=== PATIENT | female | born 1945 | race Caucasian/White ===

== ENCOUNTER 2018-10-01 08:53 | Day surgery (SDC) | payer MEDICARE ==
--- NOTE | 2018-10-01 08:12 | HP ---
DATE OF SURGERY: 10/01/2018 HISTORY OF PRESENT ILLNESS: The patient is a 73 year-old who had a positive fecal occult recently. No gross bloody stools. Some loose stools, some normal. No prior colonoscopy. Family history negative for colon cancer. She had a sister had liver cancer. She is in need of colonoscopy. PAST MEDICAL HISTORY: Includes some extremity fractures in the past. Hyperlipidemia, hypertension, renal insufficiency, hyperparathyroidism secondary to renal insufficiency, diabetes mellitus type 2. PAST SURGICAL HISTORY: Colon transplant. Hysterectomy. MEDICATIONS: Amlodipine, calcitriol, carvedilol, chlorthalidone, Glyburide, losartan, magnesium, Novolin, Paricalcitol, Simvastatin, vitamin D3. ALLERGIES: DARVON. SULFA. AMPICILLIN. FAMILY HISTORY: Negative for colon cancer. She had a sister had liver cancer. Diabetes, hypertension. SOCIAL HISTORY: Denies alcohol abuse. REVIEW OF SYSTEMS: Twelve systems reviewed per admission assessment. No chest pain or palpitations other systems negative or noncontributory as above and per preadmission questionnaire. PHYSICAL EXAMINATION: GENERAL: No acute distress. HEENT: Sclerae nonicteric. NECK: No JVD. CHEST: Equal excursion, nonlabored breathing. CVS: Regular rate and rhythm. ABDOMEN: Soft. No peritoneal signs. EXTREMITIES: No significant edema. NEURO: Alert, oriented, moving extremities symmetrically. No gross motor deficits noted. RECTAL: Deferred timed to endoscopy exam. IMPRESSION: History of no prior colonoscopy, positive fecal occult according to the patient. I feel she is a candidate for colonoscopy. Risks and benefits explained in detail including but not limited to bleeding or infection, risk of bowel injury or perforation possibly requiring open procedure, risk of missed or nondiagnosis or incomplete exam possibly requiring barium enema, other studies or procedures, general risk of anesthesia or sedation, risk of bowel prep, postoperative risk of nausea or cramping but not limited to, possible inability to identify the etiology of her fecal occult positive stool possibly requiring other work up, tests or monitoring. She understands all the above but not limited to, will proceed with outpatient follow up colonoscopy.
[~2018-10-01 08:53] MED LIST: Lactated Ringers 1,000 ML IV ONE; Lactated Ringers 1,000 ML IV SCH
[2018-10-01] MEDS ORDERED: Ketamine HCl 50 MG/ML IV ONE (08:54)
[2018-10-01] MEDS ORDERED: DIPRIVAN 200 MG/20 ML IV ONE (08:54)
[2018-10-01] MEDS ORDERED: Lactated Ringers 1,000 ML IV ONE (11:56)
[2018-10-01 13:31] VITALS: BP 148/87; PULSE 72; O2SAT 96
--- NOTE | 2018-10-01 14:33 | OP ---
SURGERY DATE/TIME: 10/01/2018 1114 PREOPERATIVE DIAGNOSIS: Positive hemoccult. No prior colonoscopy. POSTOPERATIVE DIAGNOSES: 1) Large rectosigmoid mass. 2) Multiple polyps. 3) Diverticulosis. 4) Internal and external hemorrhoids. 5) Fair bowel prep. PROCEDURES: 1) Colonoscopy to terminal ileum. 2) Retrograde ileoscopy. 3) Hot snare polypectomy transverse colon polyp x2. 4) Hot biopsy polypectomy small transverse colon polyp. 5) Hot snare approximately 1.5 cm polyp transverse colon site or right around the splenic flexure area removed with hot snare polypectomy, marked with ink spot tattooing. 6) Hot snare piecemeal biopsy of large rectosigmoid mass upper part of the rectum distal sigmoid. 7) Hot snare polypectomy small rectal polyp. SURGEON: Dr. Tony Dailey. ANESTHESIA: MAC. ESTIMATED BLOOD LOSS: Minimal. INDICATIONS: As noted above. Risks and benefits explained in detail but not limited to and consent obtained. DESCRIPTION OF PROCEDURE AND FINDINGS: The patient is taken to the operating room. MAC anesthesia introduced. After official time out and no disagreement with planned procedure, digital rectal exam did not reveal any large distal rectal masses. She did have some internal and external hemorrhoids. Video colonoscope inserted and passed up through the sigmoid, descending, transverse colon. She was overweight and had a very tortuous colon. This took quite some time with multiple position changes trying to flatten the loop to get the scope to advance forward finally reaching the cecum. It was able to be passed up the terminal ileum. Retrograde ileoscopy performed and grossly unremarkable. The scope slowly and carefully withdrawn. Prep overall was fair. A small amount of liquidy stool suction irrigated as clear as possible. There were three polyps in the transverse colon, two of which removed with hot snare polypectomy and smaller one removed with hot biopsy forceps with brief bursts of cautery elevating these away from the bowel wall. Good hemostasis noted. In the distal transverse or possibly the proximal descending around the splenic flexure area, had a 1.5 cm polyp removed with hot snare polypectomy. The location was marked with ink spot tattooing injecting 1 cc in a couple of locations in submucosa with ink spot tattoo. Good hemostasis noted. The scope then pulled back. In the rectosigmoid area there was a large mass that could not be safely removed endoscopically. The snare was used to take a couple large chunks off of this for biopsy. I felt this would ultimately need surgical resection of this large polypoid mass. Ink spot tattooing injected at the distal edge of the base. Again, this seemed to be at the upper part of the rectum distal sigmoid and rectosigmoid area, lower sigmoid and upper third of the rectum. Good hemostasis noted. Again, ink spot tattooing had been accomplished. There was another small polyp about 3 mm in size in the rectum removed with hot snare polypectomy and brief bursts of cautery. Good hemostasis noted. The scope is withdrawn. Patient tolerated the procedure well. Findings discussed with the family out in the waiting area.
== END 2018-10-01 13:30 | disposition home or self-care (01) ==
LOC: SDC 08:53
PROVIDERS: ATTEND Surgery
DX: D12.3 Benign neoplasm of transverse colon (principal); R19.5 Other fecal abnormalities; K63.5 Polyp of colon; K62.1 Rectal polyp; K64.4 Residual hemorrhoidal skin tags; K64.8 Other hemorrhoids; R19.09 Other intra-abdominal and pelvic swelling, mass and lump
CPT/HCPCS: 82962; 88305; 99100; J2704

== ENCOUNTER 2020-01-20 08:53 | Day surgery (SDC) | payer MEDICARE ==
--- NOTE | 2020-01-17 08:05 | HP ---
DATE OF SURGERY: 01/20/2020 HISTORY OF PRESENT ILLNESS: The patient is a 74 year old with history of colon cancer. No change in bowel movements. No bloody stools. She is in need of follow up colonoscopy. PAST MEDICAL HISTORY: Diabetes, hypertension, colon cancer. PAST SURGICAL HISTORY: Hysterectomy. Appendectomy. Colonoscopy. Laparoscopic assisted partial colectomy with reanastomosis in the past. MEDICATIONS: Chlorthalidone, losartan, amlodipine, Allopurinol, Glyburide, Simvastatin, carvedilol, Novolin insulin. ALLERGIES: SULFA. DARVON. FAMILY HISTORY: No colon cancer. SOCIAL HISTORY: No smoking or alcohol abuse. REVIEW OF SYSTEMS: Fourteen systems reviewed. No chest pain or palpitations. Other systems negative or noncontributory as above and per preadmission questionnaire. PHYSICAL EXAMINATION: GENERAL: No acute distress. HEENT: Sclerae nonicteric. NECK: No JVD. CHEST: Equal excursion, nonlabored breathing. CVS: Regular rate and rhythm. ABDOMEN: Soft. No peritoneal signs. EXTREMITIES: No significant edema. NEURO: Alert, oriented, moving extremities symmetrically. No gross focal deficits. PSYCH: Appropriate mood and affect. RECTAL: Deferred timed to endoscopy exam. IMPRESSION: History of colon cancer in need of follow up surveillance colonoscopy. I feel she is a candidate. Risks and benefits explained in detail including but not limited to bleeding or infection, risk of bowel injury or perforation possibly requiring open procedure, risk of missed or nondiagnosis or incomplete exam possibly requiring barium enema, other studies or procedures, general risk of anesthesia or sedation, risk of bowel prep but not limited to. Consent was obtained, will proceed with outpatient follow up colonoscopy.
[2020-01-20] MEDS ORDERED: Lactated Ringers 1,000 ML IV ONE (09:17)
[2020-01-20] MEDS ORDERED: Lactated Ringers 1,000 ML IV SCH (10:00)
[2020-01-20] MEDS ORDERED: DIPRIVAN 200 MG/20 ML IV ONE (11:05)
[2020-01-20] MEDS ORDERED: Ketamine HCl 50 MG/ML ONE (11:05)
--- NOTE | 2020-01-20 13:46 | OP ---
SURGERY DATE/TIME: 01/20/2020 1111 PREOPERATIVE DIAGNOSIS: Prior history of colon cancer status post resection. POSTOPERATIVE DIAGNOSES: 1) Small polyp descending colon. 2) Small rectal polyp. 3) Diverticulosis. 4) Fair bowel prep. 5) ASA Class III. PROCEDURES: 1) Colonoscopy to cecum with random cold biopsies of old tattoo prior polypectomy site in colon. 2) Hot biopsy polypectomy complete removal of early descending colon polyp. 3) Hot biopsy polypectomy complete removal of rectal polyp just distal to anastomotic site. SURGEON: Dr. Tony Dailey. MACHINE CAGE MAKER: Alejandra Winchester, Medical Student III. ANESTHESIA: MAC. ESTIMATED BLOOD LOSS: Minimal. INDICATIONS: As noted above. Risks and benefits explained in detail but not limited to and consent obtained. DESCRIPTION OF PROCEDURE AND FINDINGS: The patient is taken to the operating room. MAC anesthesia introduced. After official time out and no disagreement with planned procedure, the video colonoscope inserted and passed up the tortuous sigmoid, descending, transverse and ascending colon around to the cecum. Appendiceal orifice and valve well visualized. Valve was photo-documented. Confirmed location palpation right lower quadrant. Prep overall was fair with some semisolid liquidy stool was suction irrigated as clear as possible just slightly limiting the exam. The scope is slowly and carefully withdrawn over the next eight minutes. There were no signs of any large polyps or obstructing masses. There is an old tattoo site in the mid portion of the colon. Cold biopsy taken overlying this to evaluate for any unusual recurrence. Good hemostasis noted. Random cold biopsies taken over this mucosal tattoo area. Random cold biopsies polypectomy taken over the tattooed area. The scope is then carefully pulled back to the descending colon. Another small polyp removed with hot biopsy polypectomy with brief bursts of cautery. Good hemostasis noted. The scope pulled through anastomotic site. It was widely patent. No evidence of any recurrence. There is a little suture/staple reaction but otherwise no evidence of any recurrence. The scope pulled back in the proximal rectum just past the anastomotic area. Small polyps removed with hot biopsy forceps with brief bursts of cautery. Good hemostasis noted. Otherwise she had some small internal and external hemorrhoids. There were no signs of any large polyps, masses or obstructing lesions. She had some diverticulosis. Withdrawal time was about eight minutes. She tolerated the procedure. There was no gross evidence of any cancer recurrence.
[2020-01-20 15:21] VITALS: O2SAT 97
[2020-01-20 15:22] VITALS: BP 145/87; PULSE 68
== END 2020-01-20 12:30 | disposition home or self-care (01) ==
LOC: SDC 08:53
PROVIDERS: ATTEND Surgery
DX: Z08 Encounter for follow-up examination after completed treatment for malignant neoplasm (principal); Z85.038 Personal history of other malignant neoplasm of large intestine; K63.5 Polyp of colon; D12.8 Benign neoplasm of rectum; K57.30 Diverticulosis of large intestine without perforation or abscess without bleeding; E11.9 Type 2 diabetes mellitus without complications; I10 Essential (primary) hypertension; Z79.899 Other long term (current) drug therapy
CPT/HCPCS: 82962; 88305; 99100; J2704

== ENCOUNTER 2021-10-01 11:05 | Observation (INO) | payer MEDICARE ==
[2021-10-01] MEDS ORDERED: Sodium Chloride 0.9% 1000 ML 1,000 ML IV STA (11:11)
[2021-10-01] MEDS ORDERED: BENADRYL 50 MG/ML IV ONE (11:12)
[2021-10-01] MEDS ORDERED: TORAdol 30 mg Injection IV ONE (11:12)
[2021-10-01] MEDS ORDERED: Reglan 10 MG/2 ML IV ONE (11:12)
[2021-10-01] MEDS ORDERED: DECADRON 10MG INJ. IV ONE (11:13)
[2021-10-01 11:42] LABS: INR 1.19 (0.8-3.0)
[2021-10-01 11:45] LABS: PTT 51.9 SECONDS (25.1-36.5)
[2021-10-01 11:57] LABS: ALBUMIN 3.8 g/dL (3.5-5.0); ANION GAP 15.2 MEQ/L (5-15); BILIRUBIN,TOTAL 0.6 mg/dL (0.2-1.3); Calcium 8.9 mg/dL (8.4-10.2); Creatinine 1 2.08 mg/dL (0.52-1.04); EST GLOMERULAR FILTRATION RATE 24.5 ML/MIN; Potassium 4.3 mmol/L (3.5-5.1); Total Protein 6.3 g/dL (6.3-8.2)
--- NOTE | 2021-10-01 12:18 | XRAY ---
Indication: Volume overload. Comparison: None PA/lateral chest hyperinflated with mild bibasilar subsegmental atelectasis/scarring. Remaining heart and upper lungs unremarkable. Bony thorax intact with mild osteopenia and degenerative changes. Impression: COPD and bibasilar subsegmental atelectasis/scarring. Negative for acute pneumonic process or CHF.
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
[2021-10-01 12:49] LABS: Bacteria FEW /HPF (NEGATIVE); Epithelial Cells RARE /HPF (FEW); WBC >100 /HPF (0-5)
[2021-10-01 12:55] LABS: Absolute Neutrophil Ct (ANC) 4.86 (1.4-6.9); Basophil (Absolute #) 0.01 (0-0.4); Eosinophil % 2.6 % (0.00-5.0); Eosinophil (Absolute #) 0.15 (0-0.5); Hematocrit 35.2 % (35-47); Hemoglobin 11.1 gm/dl (12.0-16.0); Lymphocyte (Absolute #) 0.49 (1.0-4.6); Lymphocytes % 8.4 % (24.0-44.0); Mean Cell Volume 93.6 fl (78-100); Mean Corpuscular Hemoglobin 29.5 pg (26-32); Mean Corpuscular Hgb Concent. 31.5 g/dl (32-36); Monocyte (Absolute #) 0.35 (0.0-1.3); Neutrophil % 82.8 % (36.0-66.0); Platelet Count 207 K/mm3 (150-450); Red Blood Count 3.76 M/mm3 (4.1-5.4); White Blood Count 5.9 K/mm3 (4.0-10.5)
[2021-10-01 12:57] LABS: Appearance SLIGHTLY CLOUDY (CLEAR); Bilirubin NEGATIVE (NEGATIVE); Glucose NEGATIVE (NEGATIVE); Ketones NEGATIVE (NEGATIVE); Nitrite NEGATIVE (NEGATIVE); Protein,Urine Dip 100 (Negative); RBC NEGATIVE Ery/ul (0-5); Urobilinogen 0.2 mg/dL (0-1)
[2021-10-01 13:01] LABS: Neutrophils 84 % (36.0-66.0)
[2021-10-01 13:02] LABS: Eosinophil 3 % (0.00-3.0); Lymphocytes 8 % (24-44); Monocyte 5 % (0.0-12.0); Platelet Estimate NORMAL (NORMAL)
[2021-10-01 13:45] LABS: Dipstick done @ ? MAIN LAB
[2021-10-01 17:50] LABS: INFLUENZA A NEGATIVE (NEGATIVE); INFLUENZA B NEGATIVE (NEGATIVE); RESPIRATORY SYNCTIAL VIRUS NEGATIVE (Negative); SARS-CoV-2 Xpert Express NEGATIVE (NEGATIVE)
[2021-10-01] MEDS ORDERED: HUMALOG SQ PRN (21:17)
[2021-10-01] MEDS: Novolin N SQ SCH ×2 (21:50→22:02)
[2021-10-01] MEDS: ZOCOR 20MG PO SCH (21:52)
[2021-10-01] MEDS: Apresoline 25 MG TABLET PO SCH (21:53)
[2021-10-01] MEDS: NORVASC 5 MG PO SCH (21:53)
[2021-10-01] MEDS: COREG 12.5 MG PO SCH (21:54)
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
[2021-10-02 06:18] LABS: Absolute Neutrophil Ct (ANC) 4.18 (1.4-6.9); Basophil (Absolute #) 0.01 (0-0.4); Eosinophil % 3.4 % (0.00-5.0); Hematocrit 30.2 % (35-47); Hemoglobin 9.2 gm/dl (12.0-16.0); Lymphocyte (Absolute #) 0.76 (1.0-4.6); Lymphocytes % 13.1 % (24.0-44.0); Mean Corpuscular Hemoglobin 28.9 pg (26-32); Mean Corpuscular Hgb Concent. 30.5 g/dl (32-36); Mean Platelet Volume 10.7 fl (7.5-11.0); Monocyte (Absolute #) 0.66 (0.0-1.3); Monocytes % 11.4 % (0.0-12.0); Neutrophil % 71.9 % (36.0-66.0); Platelet Count 183 K/mm3 (150-450); Red Blood Count 3.18 M/mm3 (4.1-5.4); Red Cell Distribution Width 14.9 % (11.5-14.0); White Blood Count 5.8 K/mm3 (4.0-10.5)
[2021-10-02 06:32] LABS: ALBUMIN 3.1 g/dL (3.5-5.0); ANION GAP 12.8 MEQ/L (5-15); BILIRUBIN,TOTAL 0.4 mg/dL (0.2-1.3); Calcium 8.3 mg/dL (8.4-10.2); EST GLOMERULAR FILTRATION RATE 25.7 ML/MIN; Potassium 3.9 mmol/L (3.5-5.1); Total Protein 5.5 g/dL (6.3-8.2)
[2021-10-02] MEDS: Novolin N SQ SCH ×2 (09:05→21:33)
[2021-10-02] MEDS: COREG 12.5 MG PO SCH ×2 (09:05→21:35)
[2021-10-02] MEDS: Apresoline 25 MG TABLET PO SCH ×4 (09:05→21:35)
--- NOTE | 2021-10-02 09:54 | PCM.NOTE ---
Date and Time: 10/02/21953 Subjective Assessment: doing better - Review of Systems Constitutional: No Fever, No Chills Eyes: No Symptoms Ears, Nose, & Throat: No Symptoms Respiratory: No Cough, No Short Of Breath Cardiac: No Chest Pain, No Edema, No Syncope Abdominal/Gastrointestinal: No Abdominal Pain, No Nausea, No Vomiting, No Diarrhea Genitourinary Symptoms: No Dysuria Musculoskeletal: No Back Pain, No Neck Pain Skin: No Rash Neurological: No Dizziness, No Focal Weakness, No Sensory Changes Psychological: No Symptoms Endocrine: No Symptoms Hematologic/Lymphatic: No Symptoms Immunological/Allergic: No Symptoms Objective Exam General Appearance: no apparent distress, alert Neurologic Exam: alert, oriented x 3, cooperative, normal mood/affect, nml cerebellar function, sensation nml, No motor deficits Skin Exam: normal color, warm, dry Eye Exam: PERRL, EOMI, eyes nml inspection Ears, Nose, Throat Exam: normal ENT inspection, pharynx normal, moist mucous membranes Neck Exam: normal inspection, non-tender, supple, full range of motion Respiratory Exam: normal breath sounds, lungs clear, No respiratory distress Cardiovascular Exam: regular rate/rhythm, normal heart sounds Gastrointestinal/Abdomen Exam: soft, No tenderness, No mass Extremity Exam: normal inspection, normal range of motion Back Exam: normal inspection, normal range of motion, No CVA tenderness, No vertebral tenderness Pelvic Exam: deferred Rectal Exam: deferred OBJECTIVE DATA Vital Signs: Vital Signs - 24 hr Temp Pulse Resp BP Pulse Ox 10/02/21 08:00 18 10/02/21 07:28 97.8 F 78 18 176/74 94 L 10/02/21 04:00 97.7 F 72 16 167/70 96 10/02/21 00:00 97.5 F 76 16 139/80 96 10/01/21 20:59 189/89 10/01/21 20:00 97.8 F 75 16 146/84 95 10/01/21 18:43 97.8 F 75 16 146/84 95 10/01/21 17:11 65 179/115 96 10/01/21 16:06 57 L 17 161/95 95 10/01/21 15:35 61 16 172/64 97 10/01/21 15:07 98 10/01/21 14:55 69 173/78 97 10/01/21 13:09 67 16 157/76 97 10/01/21 12:12 97.8 F 62 20 174/93 98 10/01/21 11:11 97.6 F 68 22 169/89 98 Pain Assessment - Last Documented Pain Intensity 0 Intake and Output: Intake & Output 09/29/21 09/30/21 10/01/21 10/02/21 11:59 11:59 11:59 11:59 Intake Total 780 Output Total 750 Balance 30 Weight 81 kg 81.1 kg Lab Results: Lab Results-Last 24 Hours 10/01/21 10/01/21 10/01/21 Range/Units 11:31 11:31 11:31 WBC (4.0-10.5) K/mm3 RBC (4.1-5.4) M/mm3 Hgb (12.0-16.0) gm/dl Hct (35-47) % MCV (78-100) fl MCH (26-32) pg MCHC (32-36) g/dl RDW (11.5-14.0) % Plt Count (150-450) K/mm3 MPV (7.5-11.0) fl Gran % (36.0-66.0) % Eos # (Auto) (0-0.5) Absolute Lymphs (auto) (1.0-4.6) Absolute Monos (auto) (0.0-1.3) Lymphocytes % (24.0-44.0) % Monocytes % (0.0-12.0) % Eosinophils % (0.00-5.0) % Basophils % (0.0-0.4) % Absolute Granulocytes (1.4-6.9) Segmented Neutrophils (36.0-66.0) % Lymphocytes (Manual) (24-44) % Monocytes (Manual) (0.0-12.0) % Eosinophils (Manual) (0.00-3.0) % Basophils # (0-0.4) Platelet Estimate (NORMAL) RBC Morphology PT 14.0 H (9.4-12.5) SECONDS INR 1.19 (0.8-3.0) APTT 51.9 H (25.1-36.5) SECONDS Sodium 140 (137-145) mmol/L Potassium 4.3 (3.5-5.1) mmol/L Chloride 107 (98-107) mmol/L Carbon Dioxide 23 (22-30) mmol/L Anion Gap 15.2 H (5-15) MEQ/L BUN 27 H (7-17) mg/dL Creatinine 2.08 H (0.52-1.04) mg/dL Estimated GFR 24.5 ML/MIN Glucose 81 (74-106) mg/dL POC Glucometer (74 to 106) mg/dL Calcium 8.9 (8.4-10.2) mg/dL Total Bilirubin 0.60 (0.2-1.3) mg/dL AST 26 (14-36) U/L ALT 29 (0-35) U/L Alkaline Phosphatase 90 (38-126) U/L Troponin I < 0.012 (0.000-0.034) ng/mL NT-Pro-B Natriuret Pep 12697 H (0-1800) pg/mL Serum Total Protein 6.3 (6.3-8.2) g/dL Albumin 3.8 (3.5-5.0) g/dL Urinalys Dipstick Clnc Urine Color (YELLOW) Urine Appearance (CLEAR) Urine pH (5-6) Ur Specific [place] (1.005-1.025) POC Urine Protein Conf (Negative) Urine Ketones (NEGATIVE) Urine Nitrite (NEGATIVE) Urine Bilirubin (NEGATIVE) Urine Urobilinogen (0-1) mg/dL Urine Leukocytes (NEGATIVE) Urine WBC (Auto) (0-5) /HPF Urine RBC (Auto) (0-2) /HPF U Epithel Cells (Auto) (FEW) /HPF Urine Bacteria (Auto) (NEGATIVE) /HPF Urine RBC (0-5) Eran/ul Urine Glucose (NEGATIVE) mg/dL Influenza Type A Ag (NEGATIVE) Influenza Type B Ag (NEGATIVE) RSV (PCR) (Negative) SARS-CoV-2 (PCR) (NEGATIVE) 10/01/21 10/01/21 10/01/21 Range/Units 12:36 12:48 15:40 WBC 5.9 (4.0-10.5) K/mm3 RBC 3.76 L (4.1-5.4) M/mm3 Hgb 11.1 L (12.0-16.0) gm/dl Hct 35.2 (35-47) % MCV 93.6 (78-100) fl MCH 29.5 (26-32) pg MCHC 31.5 L (32-36) g/dl RDW 15.0 H (11.5-14.0) % Plt Count 207 (150-450) K/mm3 MPV 11.0 (7.5-11.0) fl Gran % 82.8 H (36.0-66.0) % Eos # (Auto) 0.15 (0-0.5) Absolute Lymphs (auto) 0.49 L (1.0-4.6) Absolute Monos (auto) 0.35 (0.0-1.3) Lymphocytes % 8.4 L (24.0-44.0) % Monocytes % 6.0 (0.0-12.0) % Eosinophils % 2.6 (0.00-5.0) % Basophils % 0.2 (0.0-0.4) % Absolute Granulocytes 4.86 (1.4-6.9) Segmented Neutrophils 84 H (36.0-66.0) % Lymphocytes (Manual) 8 L (24-44) % Monocytes (Manual) 5 (0.0-12.0) % Eosinophils (Manual) 3 (0.00-3.0) % Basophils # 0.01 (0-0.4) Platelet Estimate NORMAL (NORMAL) RBC Morphology NORMAL PT (9.4-12.5) SECONDS INR (0.8-3.0) APTT (25.1-36.5) SECONDS Sodium (137-145) mmol/L Potassium (3.5-5.1) mmol/L Chloride (98-107) mmol/L Carbon Dioxide (22-30) mmol/L Anion Gap (5-15) MEQ/L BUN (7-17) mg/dL Creatinine (0.52-1.04) mg/dL Estimated GFR ML/MIN Glucose (74-106) mg/dL POC Glucometer (74 to 106) mg/dL Calcium (8.4-10.2) mg/dL Total Bilirubin (0.2-1.3) mg/dL AST (14-36) U/L ALT (0-35) U/L Alkaline Phosphatase (38-126) U/L Troponin I (0.000-0.034) ng/mL NT-Pro-B Natriuret Pep (0-1800) pg/mL Serum Total Protein (6.3-8.2) g/dL Albumin (3.5-5.0) g/dL Urinalys Dipstick Clnc MAIN LAB Urine Color YELLOW (YELLOW) Urine Appearance SLIGHTLY CLOUDY (CLEAR) Urine pH 7.0 (5-6) Ur Specific [place] 1.020 (1.005-1.025) POC Urine Protein Conf 100 (Negative) Urine Ketones NEGATIVE (NEGATIVE) Urine Nitrite NEGATIVE (NEGATIVE) Urine Bilirubin NEGATIVE (NEGATIVE) Urine Urobilinogen 0.2 (0-1) mg/dL Urine Leukocytes MODERATE (NEGATIVE) Urine WBC (Auto) >100 (0-5) /HPF Urine RBC (Auto) 6-10 (0-2) /HPF U Epithel Cells (Auto) RARE (FEW) /HPF Urine Bacteria (Auto) FEW (NEGATIVE) /HPF Urine RBC NEGATIVE (0-5) Eran/ul Urine Glucose NEGATIVE (NEGATIVE) mg/dL Influenza Type A Ag NEGATIVE (NEGATIVE) Influenza Type B Ag NEGATIVE (NEGATIVE) RSV (PCR) NEGATIVE (Negative) SARS-CoV-2 (PCR) NEGATIVE (NEGATIVE) 10/01/21 10/02/21 10/02/21 Range/Units 21:04 05:30 05:30 WBC 5.8 (4.0-10.5) K/mm3 RBC 3.18 L (4.1-5.4) M/mm3 Hgb 9.2 L (12.0-16.0) gm/dl Hct 30.2 L (35-47) % MCV 95.0 (78-100) fl MCH 28.9 (26-32) pg MCHC 30.5 L (32-36) g/dl RDW 14.9 H (11.5-14.0) % Plt Count 183 (150-450) K/mm3 MPV 10.7 (7.5-11.0) fl Gran % 71.9 H (36.0-66.0) % Eos # (Auto) 0.20 (0-0.5) Absolute Lymphs (auto) 0.76 L (1.0-4.6) Absolute Monos (auto) 0.66 (0.0-1.3) Lymphocytes % 13.1 L (24.0-44.0) % Monocytes % 11.4 (0.0-12.0) % Eosinophils % 3.4 (0.00-5.0) % Basophils % 0.2 (0.0-0.4) % Absolute Granulocytes 4.18 (1.4-6.9) Segmented Neutrophils (36.0-66.0) % Lymphocytes (Manual) (24-44) % Monocytes (Manual) (0.0-12.0) % Eosinophils (Manual) (0.00-3.0) % Basophils # 0.01 (0-0.4) Platelet Estimate (NORMAL) RBC Morphology PT (9.4-12.5) SECONDS INR (0.8-3.0) APTT (25.1-36.5) SECONDS Sodium 139 (137-145) mmol/L Potassium 3.9 (3.5-5.1) mmol/L Chloride 108 H (98-107) mmol/L Carbon Dioxide 22 (22-30) mmol/L Anion Gap 12.8 (5-15) MEQ/L BUN 29 H (7-17) mg/dL Creatinine 2.00 H (0.52-1.04) mg/dL Estimated GFR 25.7 ML/MIN Glucose 95 (74-106) mg/dL POC Glucometer 172 H (74 to 106) mg/dL Calcium 8.3 L (8.4-10.2) mg/dL Total Bilirubin 0.40 (0.2-1.3) mg/dL AST 19 (14-36) U/L ALT 22 (0-35) U/L Alkaline Phosphatase 71 (38-126) U/L Troponin I (0.000-0.034) ng/mL NT-Pro-B Natriuret Pep (0-1800) pg/mL Serum Total Protein 5.5 L (6.3-8.2) g/dL Albumin 3.1 L (3.5-5.0) g/dL Urinalys Dipstick Clnc Urine Color (YELLOW) Urine Appearance (CLEAR) Urine pH (5-6) Ur Specific [place] (1.005-1.025) POC Urine Protein Conf (Negative) Urine Ketones (NEGATIVE) Urine Nitrite (NEGATIVE) Urine Bilirubin (NEGATIVE) Urine Urobilinogen (0-1) mg/dL Urine Leukocytes (NEGATIVE) Urine WBC (Auto) (0-5) /HPF Urine RBC (Auto) (0-2) /HPF U Epithel Cells (Auto) (FEW) /HPF Urine Bacteria (Auto) (NEGATIVE) /HPF Urine RBC (0-5) Eran/ul Urine Glucose (NEGATIVE) mg/dL Influenza Type A Ag (NEGATIVE) Influenza Type B Ag (NEGATIVE) RSV (PCR) (Negative) SARS-CoV-2 (PCR) (NEGATIVE) 10/02/21 Range/Units 07:08 WBC (4.0-10.5) K/mm3 RBC (4.1-5.4) M/mm3 Hgb (12.0-16.0) gm/dl Hct (35-47) % MCV (78-100) fl MCH (26-32) pg MCHC (32-36) g/dl RDW (11.5-14.0) % Plt Count (150-450) K/mm3 MPV (7.5-11.0) fl Gran % (36.0-66.0) % Eos # (Auto) (0-0.5) Absolute Lymphs (auto) (1.0-4.6) Absolute Monos (auto) (0.0-1.3) Lymphocytes % (24.0-44.0) % Monocytes % (0.0-12.0) % Eosinophils % (0.00-5.0) % Basophils % (0.0-0.4) % Absolute Granulocytes (1.4-6.9) Segmented Neutrophils (36.0-66.0) % Lymphocytes (Manual) (24-44) % Monocytes (Manual) (0.0-12.0) % Eosinophils (Manual) (0.00-3.0) % Basophils # (0-0.4) Platelet Estimate (NORMAL) RBC Morphology PT (9.4-12.5) SECONDS INR (0.8-3.0) APTT (25.1-36.5) SECONDS Sodium (137-145) mmol/L Potassium (3.5-5.1) mmol/L Chloride (98-107) mmol/L Carbon Dioxide (22-30) mmol/L Anion Gap (5-15) MEQ/L BUN (7-17) mg/dL Creatinine (0.52-1.04) mg/dL Estimated GFR ML/MIN Glucose (74-106) mg/dL POC Glucometer 82 (74 to 106) mg/dL Calcium (8.4-10.2) mg/dL Total Bilirubin (0.2-1.3) mg/dL AST (14-36) U/L ALT (0-35) U/L Alkaline Phosphatase (38-126) U/L Troponin I (0.000-0.034) ng/mL NT-Pro-B Natriuret Pep (0-1800) pg/mL Serum Total Protein (6.3-8.2) g/dL Albumin (3.5-5.0) g/dL Urinalys Dipstick Clnc Urine Color (YELLOW) Urine Appearance (CLEAR) Urine pH (5-6) Ur Specific Burton (1.005-1.025) POC Urine Protein Conf (Negative) Urine Ketones (NEGATIVE) Urine Nitrite (NEGATIVE) Urine Bilirubin (NEGATIVE) Urine Urobilinogen (0-1) mg/dL Urine Leukocytes (NEGATIVE) Urine WBC (Auto) (0-5) /HPF Urine RBC (Auto) (0-2) /HPF U Epithel Cells (Auto) (FEW) /HPF Urine Bacteria (Auto) (NEGATIVE) /HPF Urine RBC (0-5) Eran/ul Urine Glucose (NEGATIVE) mg/dL Influenza Type A Ag (NEGATIVE) Influenza Type B Ag (NEGATIVE) RSV (PCR) (Negative) SARS-CoV-2 (PCR) (NEGATIVE) Radiology Exams: Radiology Procedures Category Date Time Status CHEST 2 VIEWS (PA AND LAT) Stat Exams 10/01/21 13:34 Completed ECHO W/2D AND DOPPLER [US] Stat Exams 10/01/21 15:01 Taken Assessment/Plan (1) Decreased urine output Current Visit: Yes Status: Acute Code(s): R34 - ANURIA AND OLIGURIA (2) Elevated brain natriuretic peptide (BNP) level Current Visit: Yes Status: Acute Code(s): R79.89 - OTHER SPECIFIED ABNORMAL FINDINGS OF BLOOD CHEMISTRY (3) UTI (urinary tract infection) Current Visit: Yes Status: Acute Qualifiers: Urinary tract infection type: acute cystitis Hematuria presence: without hematuria Qualified Code(s): N30.00 - Acute cystitis without hematuria Code(s): N39.0 - URINARY TRACT INFECTION, SITE NOT SPECIFIED
[2021-10-02] MEDS ORDERED: NON-FORMULARY ITEM (Hydralazine Hcl [Hydralazine Hcl] 50 MG Tablet) PO SCH (10:00)
[2021-10-02] MEDS ORDERED: NON-FORMULARY ITEM (Glipizide [Glipizide Er] 5 MG Tab.Er.24) PO SCH (10:00)
[2021-10-02] MEDS ORDERED: NON-FORMULARY ITEM (Losartan Potassium [Cozaar] 100 MG Tablet) PO SCH (10:00)
[2021-10-02] MEDS: Cozaar 50 MG PO SCH (10:03)
[2021-10-02] MEDS: CHLORTHALIDONE PO SCH (10:04)
[2021-10-02] MEDS: Amaryl 2 MG PO SCH (10:04)
[2021-10-02] MEDS: BETAMETHASONE DIPROPIONATE TOP SCH ×2 (10:05→21:32)
[2021-10-02] MEDS ORDERED: MEDICATION INTERVENTION MC SCH (11:00)
[2021-10-02] MEDS: Glucotrol Xl 2.5 MG PO SCH (17:52)
[2021-10-02] MEDS: ZOCOR 20MG PO SCH (21:35)
[2021-10-02] MEDS: NORVASC 5 MG PO SCH (21:35)
[2021-10-02] MEDS ORDERED: FLUOROMETHOLONE OP SCH (22:00)
[2021-10-02] MEDS ORDERED: ZOCOR 20MG PO SCH (22:00)
--- NOTE | 2021-10-03 08:35 | PCM.NOTE ---
Date and Time: 10/03/21832 Subjective Assessment: doing ok - Review of Systems Constitutional: No Fever, No Chills Eyes: No Symptoms Ears, Nose, & Throat: No Symptoms Respiratory: No Cough, No Short Of Breath Cardiac: No Chest Pain, No Edema, No Syncope Abdominal/Gastrointestinal: No Abdominal Pain, No Nausea, No Vomiting, No Diarrhea Genitourinary Symptoms: No Dysuria Musculoskeletal: No Back Pain, No Neck Pain Skin: No Rash Neurological: No Dizziness, No Focal Weakness, No Sensory Changes Psychological: No Symptoms Endocrine: No Symptoms Hematologic/Lymphatic: No Symptoms Immunological/Allergic: No Symptoms Objective Exam General Appearance: no apparent distress, alert Neurologic Exam: alert, oriented x 3, cooperative, normal mood/affect, nml cerebellar function, sensation nml, No motor deficits Skin Exam: normal color, warm, dry Eye Exam: PERRL, EOMI, eyes nml inspection Ears, Nose, Throat Exam: normal ENT inspection, pharynx normal, moist mucous membranes Neck Exam: normal inspection, non-tender, supple, full range of motion Respiratory Exam: normal breath sounds, lungs clear, No respiratory distress Cardiovascular Exam: regular rate/rhythm, normal heart sounds Gastrointestinal/Abdomen Exam: soft, No tenderness, No mass Extremity Exam: normal inspection, normal range of motion Back Exam: normal inspection, normal range of motion, No CVA tenderness, No vertebral tenderness Pelvic Exam: deferred Rectal Exam: deferred OBJECTIVE DATA Vital Signs: Vital Signs - 24 hr Temp Pulse Resp BP Pulse Ox 10/03/21 08:00 96.5 F 69 20 144/67 95 10/03/21 04:00 97.7 F 64 20 148/66 92 L 10/03/21 00:00 97.5 F 58 L 20 141/66 94 L 10/02/21 20:00 97.8 F 60 20 159/71 95 10/02/21 16:00 97.8 F 60 20 159/71 95 10/02/21 12:00 18 10/02/21 11:42 98.4 F 61 18 153/66 96 Pain Assessment - Last Documented Pain Intensity 0 Intake and Output: Intake & Output 09/30/21 10/01/21 10/02/21 10/03/21 11:59 11:59 11:59 11:59 Intake Total 780 1560 Output Total 750 1400 Balance 30 160 Weight 81 kg 81.1 kg 81.1 kg Lab Results: Lab Results-Last 24 Hours 10/02/21 10/02/21 10/02/21 Range/Units 10:54 15:55 20:46 POC Glucometer 147 H 122 H 161 H (74 to 106) mg/dL 10/03/21 10/03/21 Range/Units 07:07 07:50 POC Glucometer 46 L* 110 H (74 to 106) mg/dL Radiology Exams: Radiology Procedures Category Date Time Status CHEST 2 VIEWS (PA AND LAT) Stat Exams 10/01/21 13:34 Completed ECHO W/2D AND DOPPLER [US] Stat Exams 10/01/21 15:01 Taken Assessment/Plan (1) Decreased urine output Current Visit: Yes Status: Resolved Code(s): R34 - ANURIA AND OLIGURIA (2) Elevated brain natriuretic peptide (BNP) level Current Visit: Yes Status: Acute Code(s): R79.89 - OTHER SPECIFIED ABNORMAL FINDINGS OF BLOOD CHEMISTRY (3) UTI (urinary tract infection) Current Visit: Yes Status: Acute Qualifiers: Urinary tract infection type: acute cystitis Hematuria presence: without hematuria Qualified Code(s): N30.00 - Acute cystitis without hematuria Code(s): N39.0 - URINARY TRACT INFECTION, SITE NOT SPECIFIED
[2021-10-03 08:52] LABS: ALBUMIN 3.3 g/dL (3.5-5.0); ANION GAP 12.8 MEQ/L (5-15); BILIRUBIN,TOTAL 0.4 mg/dL (0.2-1.3); Calcium 8.6 mg/dL (8.4-10.2); Creatinine 1 2.18 mg/dL (0.52-1.04); EST GLOMERULAR FILTRATION RATE 23.2 ML/MIN; Potassium 4.3 mmol/L (3.5-5.1); Total Protein 5.7 g/dL (6.3-8.2)
[2021-10-03] MEDS: Apresoline 25 MG TABLET PO SCH ×3 (09:15→22:08)
[2021-10-03] MEDS: Amaryl 2 MG PO SCH (09:15)
[2021-10-03] MEDS: Glucotrol Xl 2.5 MG PO SCH ×2 (09:15→17:05)
[2021-10-03] MEDS: Cozaar 50 MG PO SCH (09:16)
[2021-10-03] MEDS: COREG 12.5 MG PO SCH ×2 (09:16→22:08)
[2021-10-03] MEDS: CHLORTHALIDONE PO SCH (09:17)
[2021-10-03] MEDS: BETAMETHASONE DIPROPIONATE TOP SCH ×2 (09:17→22:06)
[2021-10-03 09:19] LABS: Absolute Neutrophil Ct (ANC) 4.26 (1.4-6.9); Basophil (Absolute #) 0.01 (0-0.4); Eosinophil % 3.5 % (0.00-5.0); Hematocrit 33.4 % (35-47); Hemoglobin 10.1 gm/dl (12.0-16.0); Lymphocyte (Absolute #) 0.69 (1.0-4.6); Mean Cell Volume 94.9 fl (78-100); Mean Corpuscular Hemoglobin 28.7 pg (26-32); Mean Corpuscular Hgb Concent. 30.2 g/dl (32-36); Mean Platelet Volume 10.9 fl (7.5-11.0); Monocyte (Absolute #) 0.58 (0.0-1.3); Monocytes % 10.1 % (0.0-12.0); Neutrophil % 74.2 % (36.0-66.0); Platelet Count 186 K/mm3 (150-450); Red Blood Count 3.52 M/mm3 (4.1-5.4); Red Cell Distribution Width 14.7 % (11.5-14.0); White Blood Count 5.7 K/mm3 (4.0-10.5)
[2021-10-03] MEDS: Novolin N SQ SCH ×2 (09:24→22:10)
[2021-10-03] MEDS: Zosyn 2.25 GM 2.25 GM in Sodium Chloride 100ML MINI-BAG PLUS 100 ML IV SCH ×3 (12:35→23:50)
[2021-10-03] MEDS: NORVASC 5 MG PO SCH (22:08)
[2021-10-03] MEDS: ZOCOR 20MG PO SCH (22:09)
[2021-10-04] MEDS: Zosyn 2.25 GM 2.25 GM in Sodium Chloride 100ML MINI-BAG PLUS 100 ML IV SCH (05:08)
[2021-10-04] MEDS: Amaryl 2 MG PO SCH (08:08)
[2021-10-04] MEDS: CHLORTHALIDONE PO SCH (08:09)
[2021-10-04] MEDS: Cozaar 50 MG PO SCH (08:09)
[2021-10-04] MEDS: COREG 12.5 MG PO SCH (08:09)
[2021-10-04] MEDS: Glucotrol Xl 2.5 MG PO SCH (08:09)
[2021-10-04] MEDS: Apresoline 25 MG TABLET PO SCH (08:09)
[2021-10-04] MEDS: BETAMETHASONE DIPROPIONATE TOP SCH (08:10)
[2021-10-04] MEDS: Novolin N SQ SCH (08:12)
[2021-10-04 08:13] VITALS: BP 155/67; PULSE 63; O2SAT 95
--- NOTE | 2021-10-04 11:15 | DS ---
DISCHARGE DIAGNOSES: 1) URINARY TRACT INFECTION. 2) HYPERTENSION. 3) CHRONIC RENAL FAILURE. 4) DECREASED URINARY OUTPUT. 5) ELEVATED PRO-BNP LEVEL. HOSPITAL COURSE: The patient is a 76-year-old white female who came to the emergency room after having called the office and instructed to do so due to decreased urinary output. The patient was unable to produce any urine in the emergency room but after catheterization they were able to obtain a urine sample. The patient was noted to have an elevated Pro-BNP level and creatinine was actually stable for her. She does have a elastic tape inserter that she follows routinely. The patient had been changing around her blood pressure medications which may have caused the issue as she has been fairly hypertensive recently. The patient was admitted to the hospital and monitored. She was given Zosyn for apparent urinary tract infection with 51 to 100 white blood cells per high power field which did return agent to be Escherichia coli 10 to 20,000 colonies. The patient reported her urinary output did improve once she was in the hospital. The patient had echocardiogram performed due to elevation of Pro-BNP level at 10,000. No history of any heart problems. She does not have a rodding machine tender report currently on the chart record. The patient in the emergency room had an elevation of her creatinine at 2.0 with a BUN 29 and this is chronic for her. Her sugar was 95. Electrolytes were normal. Liver enzymes were normal. Her CBC showed hemoglobin 9.2, white count 5.8, platelet count 183,000. She had A1C test performed which came back at 6.02. The patient's echocardiogram is currently still pending with the patient stable with blood pressure being somewhat elevated in the last 24 hours of 143 to 173 systolic with diastolic 60 to74 level. The pulse has been normal. Her oxygen saturation has been normal. She has been afebrile. DISCHARGE PLAN: The patient is discharged home now on Levaquin 250 mg daily for five days for the urinary tract infection. She will be seen in the office for follow up in one week. We will attempt to obtain her echocardiogram report. She has a follow up appointment to see her elastic tape inserter a week from this next coming Monday.
--- NOTE | 2021-10-04 15:27 | ECHO ---
Transthoracic echocardiographic examination and color Doppler was done on 10/01/2021. INDICATION: IMPRESSION: 1) MILD LEFT VENTRICULAR HYPOLINESIA. EJECTION FRACTION AROUND 40%. 2) MILD TO MODERATE MITRAL REGURGITATION. 3) MILD TO MODERATE MITRAL REGURGITATION. 4) LEFT ATRIAL ENLARGEMENT. 5) LEFT VENTRICULAR HYPERTROPHY. The left ventricle was only partially visualized and demonstrated global left ventricular hypokinesia with ejection fraction 40%. There appears to be some mild left ventricular hypertrophy. The mitral valve is thickened but opens adequately. There is mild to moderate mitral regurgitation. Left atrium is mildly enlarged. The aortic valve opens adequately. The right side chambers appear to be normal.
== END 2021-10-04 10:27 | disposition home or self-care (01) ==
LOC: ED 11:05 → MED SURG 18:05
PROVIDERS: ADMIT Family Medicine; ATTEND Family Medicine
DX: N39.0 Urinary tract infection, site not specified (principal); I12.9 Hypertensive chronic kidney disease with stage 1 through stage 4 chronic kidney disease, or unspecified chronic kidney disease; E11.22 Type 2 diabetes mellitus with diabetic chronic kidney disease; N18.9 Chronic kidney disease, unspecified; R33.9 Retention of urine, unspecified; R34 Anuria and oliguria; R79.89 Other specified abnormal findings of blood chemistry; E78.00 Pure hypercholesterolemia, unspecified; B96.20 Unspecified Escherichia coli [E. coli] as the cause of diseases classified elsewhere; Z79.899 Other long term (current) drug therapy; Z20.828 Contact with and (suspected) exposure to other viral communicable diseases
CPT/HCPCS: 0241U; 36000; 36415; 71046; 80053; 81001; 82947; 83036; 83880; 84484; 85025; 85610; 85730; 87077; 87086; 87186; 93306; 99285; G0378; P9612; J1817; J2543; A9270-GY